=== PATIENT | female | born 1945 | race Caucasian/White ===

== ENCOUNTER 2019-11-02 09:20 | Outpatient (CLI) | payer MEDICARE, BC ==
[~2019-11-02] VITALS: Ht 160 cm; Wt 67.9 kg
--- NOTE | ~2019-11-02 | HEMODYNAMI ---
PATIENT:JEANNETTE LOMBARDI MEDICAL RECORD: [id number] : 49 LOCATION:D.CAT ADMISSION DATE: 11/02/19 Generatedon:11/02/201914:51 Patient name: JEANNETTE LOMBARDI Patient #: [id number] SSN: [id number] : 1945 Date of study: 11/02/2019 Page: Of Hemodynamic Procedure Report Patient Data Patient Demographics Procedure consent was obtained First Name: JEANNETTE Gender: Female Last Name: HARJIT : 1945 Middle Initial: C Age: 74 year(s) Patient #: [id number] Race: SSN: [id number] Additional ID: [id number] Contact details [address]: [address] [place] [address] State: [place] City: [place] Zip code: [address] Past Medical History Allergies: No known allergies Admission Admission Data Admission Date: 11/02/2019 Admission Time: 9:20 Arrival Date: 11/02/2019 Arrival Time: 0:00 [facility] #: [id number] Height (in.): 62.99 BSA: 1.71 (m2) Height (cm.): 160 BMI: 26.56 (kg/m2) Weight (lbs.): 149.92 Weight (kg.): 68 Lab Results Lab Result Date: 11/02/2019 Lab Result Time: 0:00 Biochemistry Name Units Result Min Max BUN mg/dl 16 --(---*)-- 7 18 Creatinine mg/dl 1 --(--*-)-- 0.6 1.3 eGFR ml/min 58 *-(----)-- 90 120 NONAFRICAN CBC Name Units Result Min Max Hematocrit % 40.8 -*(----)-- 42 54 Hemoglobin g/dl 13.7 --(*---)-- 13.5 17.5 Procedure Procedure Types Cath Procedure Diagnostic Procedure C [facility] w/Coronaries Sedation Charges Moderate Sedation up to 15 minutes Peripheral Cath Diagnostic Procedure Abd/Extremity Renal Bilat Renal Arteriogram Procedure Description Procedure Date Procedure Date: 11/02/2019 Procedure Start Time: 14:26 Procedure End Time: 14:49 Procedure Staff Name Function Johnny Li MD Performing Physician Magalis Paniagua RT Monitor Zoila Clement RN Nurse Cassandra Riddle RT Scrub Indication CAD Procedure Data Cath Procedure Fluoroscopy Diagnostic fluoroscopy Total fluoroscopy Time: 6 time: 6 min min Diagnostic fluoroscopy Total fluoroscopy dose: dose: 275.35 mGy 275.35 mGy Contrast Material Contrast Material Type Amount (ml) Isovue 300 128 Entry Location Entry Primary Successful Side Size Upsize Upsize Entry Closure Succes sful Closure Location (Fr) 1 (Fr) 2 (Fr) Remarks Device Remarks Femoral Right 5 Fr Exoseal artery Estimated blood loss: 5 ml Diagnostic catheters Device Type Used For End Catheter Placement MULTIPACK JL 4.0 5Fr Left Coronary catheter Angiography MULTIPACK 3DRC 5Fr Right Coronary catheter Angiography DIAGNOSTIC JR 4 5Fr Procedure catheter ([id number]) MULTIPACK Pigtail 5 Fr LV Angiography catheter Procedure Complications No complications Procedure Medications Medication Administration Route Dosage Oxygen etCO2 Nasal cannula 2 l/min Lidocaine 2% added to field 20 Heparin Flush Bag added to field 2 bags (1000units/500ml NS) 0.9% NaCl I.V. 100 ml/hr Versed I.V. 1 mg Fentanyl I.V. 50 mcg Versed I.V. 1 mg Fentanyl I.V. 50 mcg Versed I.V. 1 mg Versed I.V. 1 mg Hemodynamics Rest BSA: 1.71 (m2) HGB: 13.7 (g/dl) O2 Consumption: Estimated: 147.7 (ml/min) O2 Con sumption indexed: Estimated:86.37 (ml/min/m) Heart Rate: 56 (bpm) Pressure Samples Time Site Value (mmHg) Purpose Heart Use Rate(bpm) 14:42 LV 137/12,20 Snapshot 52 14:42 LV 128/6,19 Snapshot 80 Gradients Valve Time Site Site Mean SEP/DFP Peak To Heart Use 1 2 (mmHg) (sec/min) Peak Rate (mmHg) (bpm) Aortic 14:42 LV AO 102 Snapshots Pre Cath Intra NCS Post Cath Vital Signs Time Heart Resp SPO2 etCO2 NIBP (mmHg) Rhythm Pain Sedation Rate (ipm) (%) (mmHg) Status Level (bpm) 14:21:41 54 15 98 14.7 127/65(104) NSR (Missing) 10(A) 14:25:57 57 15 95 11.8 117/59(86) NSR (Missing) 10(A) 14:30:09 54 16 94 19.2 114/58(78) NSR (Missing) 9(A) 14:34:19 63 14 94 8.8 120/63(98) NSR (Missing) 9(A) 14:38:29 70 15 96 35.5 116/63(79) NSR (Missing) 9(A) 14:42:35 74 14 97 33.2 117/77(90) NSR (Missing) 10(A) 14:46:45 56 10 95 19.9 120/64(101) NSR (Missing) 10(A) Medications Time Medication Route Dose Verified Delivered Reason Notes Eff ectiveness by by 14:20:37 Oxygen etCO2 2 Johnny Buffie used for Nasal l/min Guillermo Clement RN procedure cannula 14:20:44 Lidocaine 2% added 20ml Johnny Johnny for local to vial Guillermo Li MD anesthetic field 14:20:50 Heparin Flush added 2 Johnny Johnny used for Bag to bags Guillermo Li MD procedure (1000units/500ml field NS) 14:20:59 0.9% NaCl I.V. 100 Johnny Buffie Per ml/hr Guillermo Clement RN physician 14:23:08 Versed I.V. 1 mg Johnny Buffie for Guillermo Clement RN sedation 14:23:14 Fentanyl I.V. 50 Johnny Buffie for mcg Guillermo Clement RN sedation 14:29:19 Versed I.V. 1 mg Johnny Buffie for Guillermo Clement RN sedation 14:29:23 Fentanyl I.V. 50 Johnny Buffie for mcg Guillermo Clement RN sedation 14:32:39 Versed I.V. 1 mg Johnny Buffie for Guillermo Clement RN sedation 14:37:52 Versed I.V. 1 mg Johnny Buffie for Guillermo Clement RN sedation Procedure Log Time Note 14:00:47 Informed consent obtained and on chart 14:02:29 Lab Result : Hematocrit 40.8 % 14:02:29 Lab Result : eGFR NONAFRICAN 58 ml/min 14::29 Lab Result : Hemoglobin 13.7 g/dl 14:: Lab Result : BUN 16 mg/dl 14:: Lab Result : Creatinine 1 mg/dl 14:04:15 Zoila Clement RN sent for patient. Start room use. 14:04:43 Indication : CAD 14:05:40 Arrival Date: 11/02/2019 12:00:00 AM 14:06:04 Patient Height : 62.99 inches 14:06:10 Patient Weight : 149.92 lbs 14:09:11 Procedure Status Elective Heart Cath (OP). 14:09:17 Time tracking: Regular hours (M-F 7:00 - 5:00) 14:09:23 Plan of Care:Hemodynamics will remain stable., Cardiac rhythm will remain stable., Comfort level will be maintained., Respiratory function will remain adequate., Patient/ family verbilizes understanding of procedure., Procedure tolerated without complication., Recovers from procedure without complications.. 14:09:30 Patient received from Pre/Post Procedure Room to [facility] 3 Alert and oriented. Tansferred to table in Supine position. 14:10:43 ACC Patient presents with Stable Angina CCS Anginal Class 2--Slight limitation of ordinary activity. 14:11:12 Warm blankets applied, and adwoa hugger turned on for patient comfort. 14:11:12 Correct patient and procedure confirmed by team. 14:11:13 ECG and BP/O2 sat monitors applied to patient. 14:13:11 Risk of Mortality: 0.1 14:13:15 Risk of blood transfusion: 0.4 14:13:19 Risk of ASHER: 0.9 14:13:48 Stress Test: yes; abnormal INFERIOR 14:20:30 Vital chart was started 14:20:31 Baseline sample Acquired. 14:20:37 Oxygen 2 l/min etCO2 Nasal cannula was administered by Zoila Clement RN; used for procedure; Verbal order read back and verified. 14:20:37 Rhythm: sinus rhythm 14:20:39 Full Disclosure recording started 14:20:40 - 14:20:44 Lidocaine 2% 20ml vial added to field was administered by Johnny Li MD ; for local anesthetic; Verbal order read back and verified. 14:20:47 H&P Date Dictated: 11/02/2019 H&P Addendum completed by physician on day of procedure. (MUST COMPLETE FOR ALL OUTPATIENTS), New H&P dictated by physician.. 14:20:48 Pre-procedure instructions explained to patient. 14:20:49 Pre-op teaching completed and patient verbalized understanding. 14:20:50 Heparin Flush Bag (1000units/500ml NS) 2 bags added to field was administered by Johnny Li MD; used for procedure; Verbal order read back and verified. 14:20:52 Family in patients room. 14:20:55 Patient NPO since Midnight. 14:20:59 0.9% NaCl 100 ml/hr I.V. was administered by Zoila Clement RN; Per physician; Verbal order read back and verified. 14:21:05 Patient allergic to No known allergies 14:21:09 Is the patient allergic to Iodine/contrast media? No. 14:21:12 Was the patient premedicated? Yes 14:21:22 Is patient on blood thinner?Yes 14:21:27 ACC The patient was administered the following blood thiners within the last 24 hours: ACCPlavix 14:21:31 Patient diabetic? No. 14:21:39 ----Pre-sedation anethsthesia assessment.---- 14:21:43 Previous problem with sedation/anesthesia? No ? 14:21:45 Snore? Yes 14:21:47 Sleep apnea? No 14:21:50 Deviated septum? No 14:21:52 Opens mouth fully? Yes 14:21:54 Sticks out tongue? Yes 14:21:57 Airway obstruction? No ? 14:21:59 Dentures? No ? 14:22:04 Pre procedure: right dorsailis pedis pulse 2+ Normal; easily identifiable; not easily obliterated 14:22:25 IV patent on arrival in right antecubital with 0.9% NaCl at [facility]. 14:22:31 Lab results completed and on chart. 14:22:39 Right groin area was prepped with chlora-prep and draped in sterile fashion 14:22:41 Alarms reviewed by R. N. 14:22:42 Sharps counted by scrub and verified by R.N. 14:22:43 Physician arrived 14::45 --------ALL STOP TIME OUT------ 14:23:00 Final Timeout: patient, procedure, and site verified with staff and physician. All members of the team are in agreement. 14:23:02 Right groin site verified by team. 14:23:08 Versed 1 mg I.V. was administered by Zoila Clement RN; for sedation; Verbal order read back and verified. 14:23:09 Fire Safety Assessment: A--An alcohol-based skin anteseptic being used preoperatively., C--Open oxygen or nitrous oxide is being used., D--An ESU, laser, or fiber-optic light is being used. 14:23:14 Fentanyl 50 mcg I.V. was administered by Zoila Clement RN; for sedation; Verbal order read back and verified. 14:23:14 Physical assessment completed. ASA score P 2 - A patient with mild systemic disease as per Johnny Li MD. 14:23:24 3a) 45-59 Moderately reduced kidney function. 14:23:31 Maximum allowable contrast dose (3.7 X eGFR X 0.75)161 ml. 14:23:37 Sedation plan: IV Moderate Sedation Medication:Versed, Fentanyl 14:23:42 Use device set Femoral Dx 14:23:44 ACIST Syringe (15767) opened to sterile field. 14:23:44 Bag Decanter (2002S) opened to sterile field. 14:23:45 Medline Cath Pack ([id number]) opened to sterile field. 14:23:47 ACIST Hand Control (11928) opened to sterile field. 14:23:47 ACIST Manifold (05886) opened to sterile field. 14:23:49 DIAGNOSTIC Multipack 5Fr catheter set (GL7329) opened to sterile field. 14:23:51 Tegaderm 4 x 4 (1626W) opened to sterile field. 14:23:53 SHEATH 5FR [place] (PZM816) opened to sterile field. 14:23:54 EMERALD Guide Wire (502-455) opened to sterile field. 14:25:48 Procedure started. 14:26:36 Local anesthetic to right femoral artery with Lidocaine 2% by Johnny lennon MD.INITIAL ACCESS ONLY 14:27:24 Zero performed for pressure channel P1 14:28:19 A 5 Fr sheath was inserted into the Right Femoral artery 14:28:44 A MULTIPACK JL 4.0 5Fr catheter was advanced over the wire and used for Left Coronary Angiography. 14:29:13 LCA angiography performed. 14:29:19 Versed 1 mg I.V. was administered by Zoila Clement RN; for sedation; Verbal order read back and verified. 14:29:20 Injector settings: Ml/sec: 3, Volume: 6, 14:29:23 Fentanyl 50 mcg I.V. was administered by Zoila Clement RN; for sedation; Verbal order read back and verified. 14:31:03 Catheter removed. 14:31:11 A MULTIPACK 3DRC 5Fr catheter was advanced over the wire and used for Right Coronary Angiography. 14:32:14 RCA angiography performed. 14:32:39 Versed 1 mg I.V. was administered by Zoila Clement RN; for sedation; Verbal order read back and verified. 14:32:56 Injector settings: Ml/sec: 3, Volume: 6, 14:34:35 THE 3DRC IS PULLED DOWN TO DO RENAL INJECTION. 14:34:54 LEFT RENAL INJECTION IS MADE. 14:35:48 RIGHT RENAL INJECTION IS MADE. 14:36:53 Catheter removed. 14:37:00 A DIAGNOSTIC JR 4 5Fr catheter ([id number]) was advanced over the wire and used for Procedure. 14:37:52 Versed 1 mg I.V. was administered by Zoila Clement RN; for sedation; Verbal order read back and verified. 14:40:34 RIGHT RENAL ARTERY IS INJECTED. 14:41:01 Catheter removed. 14:41:10 A MULTIPACK Pigtail 5 Fr catheter was advanced over the wire and used for LV Angiography. 14:41:59 LV gram done using UREÑA 14:42:03 Injector settings: Ml/sec: 5, Volume: 15, 14:42:38 EF : 55 % 14:42:57 LV hemodynamics recorded. 14:43:01 Catheter removed. 14:43:04 EXOSEAL 5Fr (EX500) opened to sterile field. 14:43:52 Sheath removed intact; hemostasis achieved with Exoseal to the Right Femoral artery. 14:43:56 Procedure ended.(Physican Out) 14:44:11 Contrast amount:Isovue 300 128ml. 14:44:16 Maximum allowable dose exceeded? No. 14:44:36 Fluoroscopy time 06.00 minutes. 14:44:47 Fluoroscopy dose: 275.35 mGy 14:44:47 Flurop Dose total: 275.35 14:44:58 Dose Area Product 1924.93 mGy/cm. 14:45:00 Sharps counted by scrub and verified by R.N. 14:45:02 Insertion/operative site no bleeding no hematoma. 14:45:06 Post-op/insertion site Right Femoral artery dressed using a 4 x 4 and Tegaderm. 14:45:12 Post right femoral artery:stable 14:45:14 Post Procedure Pulses reassessed and unchanged 14:45:24 Post-procedure physical assessment completed. ASA score P 2 - A patient with mild systemic disease as per Johnny Li MD. 14:45:29 Post procedure rhythm: unchanged. 14:45:32 Estimated blood loss: 5 ml 14:45:34 Post procedure instruction explained to patient.Patient verbalizes understanding. 14:45:35 Patient needs reinforcement of post procedure teaching. 14:46:49 Procedure type changed to Cath procedure, Diagnostic procedure, LHC, C w/Coronaries, Sedation Charges, Moderate Sedation up to 15 minutes, Peripheral Cath Diagnostic Procedure, Abd/Extremity, Renal, Bilat Renal Arteriogram 14:46:52 Procedure and supply charges have been captured, reviewed, submitted an d are correct. 14:49:30 Procedure Complication : No complications 14:49:33 Vital chart was stopped 14:49:39 LHC Findings: mild to moderate CAD (<70%) 14:49:46 Operative report dictated upon procedure completion. 14:49:47 See physician's report for complete and final results. 14:49:50 Report given to Pre/Post Procedure Room. 14:49:53 Patient transfered to Pre/Post Procedure Room with Stretcher. 14:49:56 Procedure ended. 14:49:56 Full Disclosure recording stopped Device Usage Item Name Manufacture Quantity Catalog Hospital Part Current Minimal L ot# / Number Charge Number Stock Stock Serial# Code [facility] 1 21032 [id number] 224985 [id number] 20 Syringe Medical (96643) Systems Inc Bag Microtek 1 2001S 994612 73080 245014 5 Decanter Medical Inc. () Medline Medline 1 [id number] 611884 81150 139304 5 Cath Pack ([id number]) ACIST Hand Acist 1 96863 917777 485250 687958 5 Control Medical (60213) Systems Inc ACIST Acist 1 42522 573489 517545 732851 5 Manifold Medical (11748) Systems Inc DIAGNOSTIC Cardinal 1 [id number] 293158 70081 724394 30 Multipack DipJar 5Fr catheter set (CJ3127) Tegaderm 4 3M 1 1626W 766189 016113 866504 5 x 4 (1626W) SHEATH 5FR Terumo 1 [id number] 300145 571313 934375 5 [place] (NPH645) EMERALD Cardinal 1 502455 168919 318700 656463 5 Guide Wire [facility] (502-562) MULTIPACK Cardinal 1 558133 5 JL 4.0 5Fr Health catheter MULTIPACK Cardinal 1 112459 5 3DRC 5Fr Health catheter DIAGNOSTIC Cardinal 1 [id number] 745203 387100 126408 5 JR 4 5Fr Health catheter ([id number]) MULTIPACK Cardinal 1 258496 5 Pigtail 5 Health Fr catheter EXOSEAL 5Fr Cardinal 1 EX500 458227 928031 180039 10 (EX500) Health Signature Audit [place] Stage Time Signature Unsigned Intra-Procedure 11/02/2019 Magalis 2:50:21 PM Arcelia RT(R) (CV) Intra-Procedure 11/02/2019 Zoila Clement RN 2:50:57 PM Intra-Procedure 11/02/2019 Johnny Li MD 2:51:30 PM [facility] [address] [place] [address]
[2019-11-02] MEDS ORDERED: CRESTOR5 MG PO (10:45)
[2019-11-02] MEDS ORDERED: ZOLOFT50 MG PO (10:45)
[2019-11-02] MEDS ORDERED: PREMARIN0.625 MG PO (10:45)
[2019-11-02] MEDS ORDERED: FUROSEMIDE20 MG PO (10:46)
[2019-11-02] MEDS ORDERED: SYNTHROID125 MCG PO (10:46)
[2019-11-02] MEDS ORDERED: PLAVIX75 MG PO (10:46)
[2019-11-02] MEDS ORDERED: XANAX0.5 MG PO (10:46)
[2019-11-02] MEDS ORDERED: POTASSIUM CHLO10 ME1 PO (10:47)
[2019-11-02] MEDS ORDERED: DIOVAN80 MG PO (10:47)
[2019-11-02] MEDS ORDERED: NORVASC10 MG PO (10:47)
[2019-11-02] MEDS ORDERED: CO Q-10100 MG PO (10:48)
[2019-11-02] MEDS ORDERED: VITAMIN D10000 UNI1 PO (10:48)
[2019-11-02] MEDS ORDERED: BAYER CHEWABLE81 MG PO (10:48)
[2019-11-02 11:04] VITALS: BP 124/61; Ht 160 cm; Wt 67.9 kg
[2019-11-02 11:22] LABS: BASOPHILS 0.5 % (0-2); CARBON DIOXIDE 28.5 mmol/L (21.0-32.0); CHOL - HDL RATIO 2.2 ratio (2.3-4.1); EOSINOPHILS 4.9 % (0-7); HEMATOCRIT 40.8 % (36.0-48.0); HEMOGLOBIN 13.7 g/dL (12-16); IMMATURE GRANULOCYTES 0.1 % (0-5); LYMPHOCYTES 31.3 % (15-50); MCH 30.9 pg (26.0-34.0); MCHC 33.6 g/dL (31.0-37.0); MCV 91.9 fL (80.0-100.0); MEAN PLATELET VOLUME 9.6 fL (7.4-10.4); MONOCYTES 10.5 % (2-11); NEUTROPHILS 52.7 % (40-80); PLATELET COUNT 293 10x3/uL (130-400); POTASSIUM - SERUM 3.5 mmol/L (3.5-5.1); RBC 4.44 10x6/uL (4.00-5.40); RDW 13.5 % (11.5-14.5); WBC 7.3 10x3/uL (4.8-10.8)
--- NOTE | 2019-11-02 15:00 | NUR ---
REC TO ROOM 3 VIA STRETCHER FROM HELICOPTER SPECIALIST, SUPINE. R GROIN SOFT, TEGADERM AND 4X4 CDI. NO S/S BLEEDING OR HEMATOMA. PPP. HR 51, SB. SAT 96% ON 2LNC. BP 139/68. DR BLAKELY HERE TO SPEAK W PT AND FAMILY.
--- NOTE | 2019-11-02 15:32 | NUR ---
R GROIN CDI, SOFT, NO S/S BLEEDING OR HEMATOMA. PPP. HR SB 45, BP 116/70, SAT 96% 2LNC.
--- NOTE | 2019-11-02 16:10 | NUR ---
HOB UP FOR PT COMFORT. COFFEE AND SANDWICH PROVIDED. R GROIN REMAINS SOFT, NO S/S BLEEDING OR HEMATOMA. PPP.
--- NOTE | 2019-11-02 16:45 | NUR ---
R GROIN REMAINS SOFT, NO S/S BLEEDING OR HEMATOMA. IV DC, TIP INTACT. MONITORING DISCONTINUED. PT DRESSING WITH ASSIST.
--- NOTE | 2019-11-02 16:55 | NUR ---
DISCHARGE TEACHING REVIEWED, QUESTIONS ANSWERED. PT DC HOME VIA WHEELCHAIR TO PRIVATE CAR W .
== END 2019-11-02 17:00 | disposition home or self-care (01) ==
LOC: D.CATH 09:20
PROVIDERS: ATTEND Internal Medicine Cardiovascular Disease
DX: I25.119 Atherosclerotic heart disease of native coronary artery with unspecified angina pectoris (principal); R94.30 Abnormal result of cardiovascular function study, unspecified; E03.9 Hypothyroidism, unspecified; R00.1 Bradycardia, unspecified